=== PATIENT | female | born 1935 | race Caucasian/White ===

== ENCOUNTER 2019-06-17 11:57 | Emergency (ER) | payer OTHER ==
[~2019-06-17] VITALS: Ht 157.5 cm; Wt 63.5 kg
[~2019-06-17 11:57] MED LIST: AMBIEN PAK5 MG; ARICEPT5 MG; CEFADROXIL500 MG PO; CORGARD20 MG; ISORBIDE; LISINOPRIL2.5 MG; NABUMETONE500 MG PO; NITROGLYCERIN0.4 MG; NORVASC2.5 MG; NORVASC5 MG; TAMOXIFEN CITRA20 MG
== END 2019-06-17 15:19 | disposition home or self-care (01) ==
LOC: ER 11:57
DX: R53.1 Weakness (principal)